=== PATIENT | male | born 1935 | race African-American/Black ===

== ENCOUNTER 2022-05-03 09:12 | Emergency (ER) | payer MEDICARE ==
[~2022-05-03] VITALS: Ht 172.7 cm; Wt 81.6 kg
[2022-05-03 09:43] LABS: BASOPHIL 0.2 % (0-2); EOSINOPHIL 1.2 % (0-7); HCT 25.1 % (42.0-52.0); HGB 7.8 g/dl (13.2-18.0); LYMPHOCYTE 12.9 % (15-48); MCH 26.8 pg (25.0-31.0); MCHC 31.1 g/dL (32.0-36.0); MCV 86.3 fL (78.0-100.0); MONOCYTE 6.3 % (0-12); MPV 9.7 fL (6.0-9.5); NEUTROPHIL 77.7 % (41-80); NRBC 0; PLT 335 K/uL (150-400); RBC 2.91 M/uL (4.70-6.00); RDW 16.6 % (11.5-14.0)
[2022-05-03 09:57] LABS: ALBUMIN 1.8 g/dL (3.4-5.0); BILIRUBIN - TOTAL 0.8 mg/dL (0.2-1.0); BUN/CREAT RATIO (CALC) 11.5 RATIO; CREATININE 1.56 mg/dL (0.67-1.17); GLOBULIN (CALCULATION) 3.6 g/dL; POTASSIUM 3.7 mmol/L (3.5-5.1); TOTAL PROTEIN 5.4 g/dL (6.4-8.2)
== END 2022-05-03 17:08 | disposition home or self-care (01) ==
LOC: FER 09:12
PROVIDERS: Emergency Medicine
DX: N18.9 Chronic kidney disease, unspecified (principal); D63.1 Anemia in chronic kidney disease; I50.9 Heart failure, unspecified
CPT/HCPCS: 36415; 36430; 80053; 85025; 86850; 86900; 86901; 86922; P9016